=== PATIENT | female | born 1990 ===

== ENCOUNTER → 2022-09-23 08:06 | Outpatient (CLI) | payer OTHER, SELFPAY ==
--- NOTE | 2022-09-23 | DI.ECHO.S_ITS ---
[facility] [facility] +---------+ [facility] +---------+ : : [address] : [address] [place] : : : : [id number] : : : : Phone: [phone]+ Echocardiogram Report + + :Name: EDWARD GELLER Study Date: 09/23/2022 Height: 59 in : :[facility] ReadingLocation: Weight: 137 lb : : Gender: Female BSA: 1.6 m2 : :: 1990 Age: 32 yrs BP: 120/90 mmHg: :Reason For Study: HYPERTENSION : :Ordering Physician: ERWIN, : :HRIGU Performed By: Jennifer Baker : :Referring: KALIN MEDEROS : + + Interpretation Summary 1) Normal left ventricular thickness, size, wall motion, and systolic function (EF 60-65%). 2) Normal right ventricular size and function. 3) No significant valvular abnormalities. 4) No prior Echo available for comparison. Procedure: A two-dimensional transthoracic echocardiogram with color flow and Doppler was performed. The study quality was technically adequate. There is no prior echocardiogram noted for this patient. The patient was in sinus rhythm with heart rates between 58-74 bpm during the exam. Left Ventricle: The left ventricle is normal in size and wall thickness. The ejection fraction is estimated to be 60-65%. Left ventricular systolic function appears normal without focal wall motion abnormalities. Diastolic parameters suggest probable normal left ventricular diastolic function and normal filling pressures. Right Ventricle: The right ventricle is normal in size and function. Atria: The left atrial size is normal. Right atrial size is normal. There is no Doppler evidence for an interatrial shunt. Mitral Valve: The mitral valve is normal in structure and function. There is trace mitral regurgitation. Aortic Valve: The aortic valve is trileaflet. The aortic valve opens well. There is no aortic valve stenosis. No aortic regurgitation is present. Tricuspid Valve: The tricuspid valve is normal in structure and function. There is trace tricuspid regurgitation. Pulmonary artery pressures cannot be estimated because of the lack of a measurable TR jet velocity. Pulmonic Valve: The pulmonic valve leaflets are thin and pliable; valve motion is normal. There is mild pulmonic regurgitation. Great Vessels: The aortic root is normal size. The dimensions of the ascending aorta are normal. The IVC is of normal diameter and collapses greater than 50% with a sniff. This suggests a low right atrial pressure of 3 mm Hg. Pericardium/ Pleura There is no pericardial effusion. There is no pleural effusion. MMode/2D Measurements & Calculations LVIDd: 3.8 cm LVOT diam: 1.9 cm LVIDs: 2.7 cm Ao root diam: 2.2 cm FS: 29.9 % asc Aorta Diam: 2.7 cm EPSS: 0.35 cm Ao Arch Diam (Prox Trans): 2.3 cm IVSd: 0.82 cm LVPWd: 0.68 cm LV dejesus. diameter/BSA (cm/m^2): 2.4 LV sys. diameter/BSA (cm/m^2): 1.7 LA A2 area: 15.5 cm2 RA long axis: 4.4 cm LA A4 area: 13.4 cm2 RA area: 10.5 cm2 LA length (vol): 4.9 cm RA vol: 21.4 ml LA vol: 36.2 ml RA : 13.6 ml/m2 LA vol index: 23.1 ml/m2 IVC diam: 1.4 cm RVD1 (basal): 3.1 cm RVD2 (mid): 2.6 cm TAPSE: 1.7 cm Doppler Measurements & Calculations Ao V2 max: 121.5 cm/sec LVOT Max Trace: 107.1 cm/sec Ao V2 mean: 87.4 cm/sec LV V1 max P.6 mmHg Ao max P.9 mmHg LV V1 VTI: 26.1 cm Ao mean P.4 mmHg ABBY(I,D): 2.9 cm2 Ao V2 VTI: 26.9 cm ABBY(V,D): 2.6 cm2 sev ratio: 0.97 ABBY indexed to BSA (cm^2/m^2): 1.8 MV E max trace: 76.9 cm/sec PA V2 max: 112.0 cm/sec MV A max trace: 43.2 cm/sec PA V2 mean: 74.5 cm/sec MV E/A: 1.8 PA mean P.6 mmHg Med Peak E' Trace: 10.4 cm/sec PA pr(Accel): 24.2 mmHg E/E' med: 7.4 Lat Peak E' Trace: 16.8 cm/sec E/E' lat: 4.6 E/e' average: 6.0 MV dec time: 0.20 sec Pulm A Revs Trace: 17.6 cm/sec SV(LVOT): 76.8 ml Pulm A Revs Dur: 0.11 sec Reading Physician:01:[id number] PM
--- NOTE | 2022-09-23 | DI.NM.S_ITS ---
PROCEDURE: NM EXERCISE TREADMILL NON NUC COMPARISON: None. INDICATIONS: HYPERTENSION FINDINGS: Rest ECG sinus rhythm. Tai protocol 7:35, maximum heart rate 163 bpm (88% peak predicted), maximum blood pressure 164/94, 10.1 METS, IVÁN +20%. Exercise ECG sinus tachycardia, no ST segment changes or arrhythmias. The patient did not complain of exercise-induced chest pain. IMPRESSION: Low risk study. No evidence of exercise-induced ischemia or arrhythmia. Normal hemodynamic response. Reduced exercise capacity. Dictated by: Kat Jose D.O. on 09/23/2022 at 17:32 Approved by: Kat Jose D.O. on 09/23/2022 at 17:34
== END ==
PROVIDERS: Referring Provider Internal Medicine Cardiovascular Disease; Visit Provider Internal Medicine Cardiovascular Disease
DX: I37.1 Nonrheumatic pulmonary valve insufficiency (principal); I10 Essential (primary) hypertension; R06.09 Other forms of dyspnea; Z82.49 Family history of ischemic heart disease and other diseases of the circulatory system
CPT/HCPCS: 93017; 93306